=== PATIENT | female | born 1985 | race Caucasian/White ===

== ENCOUNTER 2022-07-14 16:23 | Emergency (ER) | payer MEDICAID, SELFPAY ==
[2022-07-14 16:28] VITALS: BP 123/76; PULSE 88; RESP 16; TEMP 36.8; O2SAT 100; BMI 32.1
--- NOTE | 2022-07-14 17:00 | USR_ITS ---
PROCEDURE INFORMATION: Exam: US First Trimester, Transabdominal and US , Transvaginal Exam date and time: 07/14/2022 6:01 PM Age: 36 years old Clinical indication: Condition or disease; Lmp or gestational age (weeks): 05/23/2022 lmp; High risk preganancy; Threatened miscarriage; 4th ; Additional info: Vaginal bleeding LABS AND CLINICAL REPORTS: Last menstrual period start date: 05/23/2022 Gestational age (Established): 7 w 3 d Estimated due date (Established): 02/27/2023 TECHNIQUE: Imaging protocol: Real-time transabdominal obstetrical ultrasound of the maternal pelvis and a first trimester , less than 14 weeks 0 days, with image documentation. Transvaginal imaging was used for better evaluation of the fetus, adnexa, and/or cervix. COMPARISON: No relevant prior studies available. FINDINGS: Gestation: Mixed echogenic material in the uterine cavity without a normal appearing pole or . Possible yolk sac sac which measures 4.7 mm. Embryonic/ heart rate: Not visualized. Extra-embryonic membranes/Placenta: Unremarkable. No subchorionic bleed. Amniotic fluid: Amniotic fluid and extra-amniotic fluid is normal for gestational age. BIOMETRY: Gestational age (AUA): Not measured. Mean sac diameter: 1.3 cm. MATERNAL: Uterus: Uterus measures 5.2 cm x 7.9 cm x 4.7 cm. Cervix: Cervical length measures 2.7 cm. Right ovary/adnexa: Right ovary measures 1.8 x 1.7 x 2.7 cm. Left ovary/adnexa: Left ovary measures 2.2 cm x 2 cm x 3.4 cm. Intraperitoneal space: No intraperitoneal free fluid. US/US OB <=14 wk fetus w transvag IMPRESSION: Mixed echogenic material in the uterine cavity without a normal appearing pole or . Possible yolk sac sac which measures 4.7 mm. Findings may reflect an abnormal or perhaps a spontaneous miscarriage in progress with retained products of conception given history of vaginal bleeding. Close clinical correlation, serial beta HCG levels and follow-up ultrasound exam as clinically indicated advised
--- NOTE | 2022-07-14 17:30 | W.ED.GENADLT ---
HPI - General Adult General: Chief complaint: Abdominal Pain Stated complaint: Vaginal bleeding Time Seen by Provider: 07/14/22 16:55 History of Present Illness: Patient is a 36-year-old female G4, P2 presenting to emergency with 3 days of heavy vaginal bleeding. Patient tells me that she was seen on Friday at [place] for similar complaints of pelvic cramps and passage of clots and heavy vaginal bleeding. At that point time, patient was diagnosed with threatened miscarriage and was just discharged. Patient came to the emergency because of persistent heavy bleeding. Patient denies any nausea/vomiting, fever/chills, diarrhea, melena/hematochezia. Patient denies any regular contractions. Onset: 3 days ago Duration:3 days Location:home Severity:moderate Associated symptoms: Deny chest pain, dyspnea, nausea, rash, palpitations or vomiting Review of Systems Const: Denies: fever(s) or chills Eyes: Denies: change in vision ENMT: Denies: mouth pain Card: Denies: chest pain or palpitations Resp: Denies: dyspnea or non-productive cough GI: Denies: abdominal pain, nausea, vomiting or diarrhea : Reports: other (+vaginal bleeding/pelvic cramps x 3 days); Denies: dysuria Musc: Denies: extremity pain Skin/Breast: Denies: rash or new lesions Neuro: Denies: weakness in extremities Psych: Reports: other (Normal mood) Ricco/Lymph: Denies: easy bruising [facility] ED PFSH: Medical History Social History Smoking and tobacco status: current every day smoker Alcohol intake: never Substance/Drug Use: current Female Reproductive History: Date of last menstrual period: 05/14/22 Physical Exam Const: COMMON NORMALS: alert HENMT: COMMON NORMALS: atraumatic HEAD & SCALP: atraumatic MOUTH: moist mucous membranes not abnormal Eye: COMMON NORMALS: EOMs intact bilaterally and conjunctivae normal CONJUNCTIVA: Yes conjunctivae normal Neck/C-Spine: COMMON NORMALS: full ROM and supple Resp: COMMON NORMALS: normal respiratory effort and clear to auscultation bilaterally AUSCULTATION: clear to auscultation bilaterally Cardio: COMMON NORMALS: regular rate RATE: regular rate GI: COMMON NORMALS: Soft to palpation and non-tender PALPATION: Yes Soft to palpation OTHER: No focal TTP. NO guarding rebound, guarding, rigidity. No CVA tenderness to percussion. Neg Menendez/Neg McBurney's point tenderness, no suprabupic tenderness to palpation. Extremity: COMMON NORMALS: full ROM Neuro: SENSORIUM/ORIENTATION: Yes alert MOTOR EXAM: No Abnormal motor strength present and Other motor observations present (no focal motor deficits) Psych: COMMON NORMALS: speech normal SPEECH: Yes normal speech MOOD & AFFECT: Yes euthymic mood Course Vital Signs: Vital signs: Vital Signs Temperature 98.2 F 07/14/22 18:04 Pulse Rate 88 07/14/22 18:04 Respiratory Rate 16 07/14/22 18:04 Blood Pressure 118/70 07/14/22 18:04 Pulse Oximetry 100 07/14/22 18:04 Oxygen Delivery Me thod 07/14/22 18:04 MDM - General Adult Medical Decision Making Patient is a 36-year-old female G4, P2 presenting to emergency with 3 days of heavy vaginal bleeding. Patient tells me that she was seen on Friday at [place] for similar complaints of pelvic cramps and passage of clots and heavy vaginal bleeding. Patient is hemodynamically stable. Ultrasound progression of miscarriage. Patient is instructed follow-up with serial beta hCG and ultrasound. Continues to HDS in no acute distress. Disposition: Discharge. Patient counseled regarding diagnostic impression, treatment plan. Patient given ED strict return precautions to return for continuation, worsening, or development of new symptoms. Instructed to f/u w/ OB regarding symptoms today. Patient verbalized understanding. Lab Data : 07/14/22 17:54 07/14/22 17:54 Radiology Impressions Obstetrics Ultrasound 07/14/22 17:00 IMPRESSION: Mixed echogenic material in the uterine cavity without a normal appearing pole or . Possible yolk sac sac which measures 4.7 mm. Findings may reflect an abnormal or perhaps a spontaneous miscarriage in progress with retained products of conception given history of vaginal bleeding. Close clinical correlation, serial beta HCG levels and follow-up ultrasound exam as clinically indicated advised Laboratory Results WBC 11.4 10^3/uL (4.0-10.0) H 07/14/22 17:54 RBC 4.37 10^6/uL (4.1-5.3) 07/14/22 17:54 Hgb 13.2 g/dL (11.5-15.3) 07/14/22 17:54 Hct 39.9 % (37.0-47.0) 07/14/22 17:54 MCV 91.3 fl (81-99) 07/14/22 17:54 MCH 30.2 pg (28.0-34.0) 07/14/22 17:54 MCHC 33.1 g/dL (30.0-36.0) 07/14/22 17:54 RDW 11.8 % (12.1-15.1) L 07/14/22 17:54 Plt Count 263 10^3/cmm (130-400) 07/14/22 17:54 MPV 9.8 fL (7.4-10.4) 07/14/22 17:54 Neut % (Auto) 68.9 % 07/14/22 17:54 Lymph % (Auto) 22.5 % 07/14/22 17:54 Taliaferro % (Auto) 7.0 % 07/14/22 17:54 Eos % (Auto) 0.9 % 07/14/22 17:54 Baso % (Auto) 0.3 % 07/14/22 17:54 Neut # (Auto) 7.86 10^3/uL (1.8-7.7) H 07/14/22 17:54 Lymph # (Auto) 2.6 10^3/uL (0.8-4.8) 07/14/22 17:54 Taliaferro # (Auto) 0.8 10^3/uL (0.2-0.9) 07/14/22 17:54 Eos # (Auto) 0.1 10^3/uL (0.0-0.8) 07/14/22 17:54 Baso # (Auto) 0.0 10^3/uL (0.0-0.1) 07/14/22 17:54 Nucleated RBC % (auto) 0 % 07/14/22 17:54 Nucleated RBCs # 0.0 /100WBC 07/14/22 17:54 Sodium 136 mmol/L (136-145) 07/14/22 17:54 Potassium 4.1 mmol/L (3.5-5.1) 07/14/22 17:54 Chloride 101 mmol/L (98-107) 07/14/22 17:54 Carbon Dioxide 23 mmol/L (22-29) 07/14/22 17:54 Anion Gap 16.1 (5-19) 07/14/22 17:54 BUN 13 mg/dL (6-20) 07/14/22 17:54 Creatinine 0.7 mg/dL (0.5-0.9) 07/14/22 17:54 GFR Calculation 95.8 mL/min (90-130) 07/14/22 17:54 Glucose 80 mg/dL (65-115) 07/14/22 17:54 Calculated Osmolality 281 mOsm/kg (285-295) L 07/14/22 17:54 Calcium 8.9 mg/dL (8.5-10.5) 07/14/22 17:54 Total Bilirubin 0.3 mg/dL (0.15-1.2) 07/14/22 17:54 AST 21 U/L (0-32) 07/14/22 17:54 ALT 38 U/L (0-33) H 07/14/22 17:54 Alkaline Phosphatase 108 U/L (35-105) H 07/14/22 17:54 Total Protein 7.9 g/dL (6.6-8.7) 07/14/22 17:54 Albumin 4.3 g/dL (3.5-5.2) 07/14/22 17:54 Globulin 3.6 g/dL (1.3-4.6) 07/14/22 17:54 Lipase 16 U/L (13-60) 07/14/22 17:54 Ser , Semi-Qnt 4079.00 mIU/mL 07/14/22 17:54 Urine Color Straw (Yellow) 07/14/22 16:55 Urine Appearance Clear (CLEAR) 07/14/22 16:55 Urine pH 6 (5-7) 07/14/22 16:55 Ur Specific [place] 1.010 (1.005-1.030) 07/14/22 16:55 Urine Protein Neg (Negative) 07/14/22 16:55 Urine Glucose (UA) Norm (Normal) 07/14/22 16:55 Urine Ketones Negative (Negative) 07/14/22 16:55 Urine Blood 2+ (Negative) H 07/14/22 16:55 Urine Nitrate Negative (Negative) 07/14/22 16:55 Urine Bilirubin Neg (Negative) 07/14/22 16:55 Urine Urobilinogen Norm mg/dL (Negative) 07/14/22 16:55 Ur Leukocyte Esterase Negative (Negative) 07/14/22 16:55 Urine RBC 5-10 /hpf (0-2) H 07/14/22 16:55 Urine WBC Rare /hpf (0-5) 07/14/22 16:55 Ur Squamous Epith Cells 0-4 /hpf (0-5) H 07/14/22 16:55 Amorphous Sediment Not Reportable 07/14/22 16:55 Urine Bacteria Trace /hpf (NONE) 07/14/22 16:55 Blood Type A Positive 07/14/22 17:54 Rho(D) Type Positive 07/14/22 17:54 Imaging Data Other Imaging: Radiologist's impression: [place] [id number] Ultrasound Report Signed Patient: Matilda Solano Unit #: [id number] : 1985 Age/Sex: 36 / F ADM Date: 07/14/22 Loc: ER Room/Bed: Attending Dr: Ordering Provider/Ordering MD: Carol Bunn MD Date of Service: 07/14/22 Procedure(s): US OB <=14 wk fetus w transvag Accession Number(s): [id number] Report Number: [id number] PROCEDURE INFORMATION: Exam: US First Trimester, Transabdominal and US , Transvaginal Exam date and time: 07/14/2022 6:01 PM Age: 36 years old Clinical indication: Condition or disease; Lmp or gestational age (weeks): 05/23/2022 lmp; High risk preganancy; Threatened miscarriage; 4th ; Additional info: Vaginal bleeding LABS AND CLINICAL REPORTS: Last menstrual period start date: 05/23/2022 Gestational age (Established): 7 w 3 d Estimated due date (Established): 02/27/2023 TECHNIQUE: Imaging protocol: Real-time transabdominal obstetrical ultrasound of the maternal pelvis and a first trimester , less than 14 weeks 0 days, with image documentation. Transvaginal imaging was used for better evaluation of the fetus, adnexa, and/or cervix. COMPARISON: No relevant prior studies available. FINDINGS: Gestation:? Mixed echogenic material in the uterine cavity without a normal appearing pole or .? Possible yolk sac sac which measures 4.7 mm. Embryonic/ heart rate: Not visualized. Extra-embryonic membranes/Placenta: Unremarkable. No subchorionic bleed. Amniotic fluid: Amniotic fluid and extra-amniotic fluid is normal for gestational age. BIOMETRY: Gestational age (AUA):? Not measured. Mean sac diameter: 1.3 cm. MATERNAL: Uterus: Uterus measures 5.2 cm x 7.9 cm x 4.7 cm. Cervix: Cervical length measures 2.7 cm. Right ovary/adnexa:? Right ovary measures 1.8 x 1.7 x 2.7 cm. Left ovary/adnexa: Left ovary measures 2.2 cm x 2 cm x 3.4 cm. Intraperitoneal space: No intraperitoneal free fluid. US/US OB <=14 wk fetus w transvag IMPRESSION: Mixed echogenic material in the uterine cavity without a normal appearing pole or .? Possible yolk sac sac which measures 4.7 mm.? Findings may reflect an abnormal or perhaps a spontaneous miscarriage in progress with retained products of conception given history of vaginal bleeding. Close clinical correlation, serial beta HCG levels and follow-up ultrasound exam as clinically indicated advised ? Dictated By: Fredo Mendiola MD Signed By: Fredo Mendiola MD Signed Date/Time: 07/14/221912 DD/ 00 Discharge Plan Discharge Patient Disposition: Home Clinical Impression: Abnormal vaginal bleeding Condition: Stable Prescriptions: New acetaminophen 500 mg tablet 500 mg PO Q6H PRN (Reason: pain) 5 Days Qty: 20 0RF No Action multivitamin Tablet 1 tab PO DAILY Macrobid 100 mg Capsule 100 mg PO BID Rx Instructions: must administer with a meal/food Discharge Orders: Discharge ED (Routine); Ordered 07/14/22 Ordered By: Carol Bunn Discharge Diet: Advance as tolerated Discharge Activity: Increase activity as tolerated Patient Instructions: Threatened Miscarriage (ED) Activity Restrictions/Additional Instructions: Our child support case officer will have you follow-up with our obstretics provider in the next few days. You would be expected to have a phone call with our child support case officer who will put you on the schedule. You can expect a call from us in the next 2-3 days. If you don't hear from us, call us back in the emergency room at [phone]. Your hemoglobin is 13.2. Your bHCG is 4079 today. Here's a copy of your US report: [employer] [place] [address] Ultrasound Report Signed Patient: Matilda Solano Unit #: [id number] : 1985 Age/Sex: 36 / F ADM Date: 07/14/22 Loc: ER Room/Bed: Attending Dr: Ordering Provider/Ordering MD: Carol Bunn MD Date of Service: 07/14/22 Procedure(s): US OB <=14 wk fetus w transvag Accession Number(s): [id number] Report Number: [id number] PROCEDURE INFORMATION: Exam: US First Trimester, Transabdominal and US , Transvaginal Exam date and time: 07/14/2022 6:01 PM Age: 36 years old Clinical indication: Condition or disease; Lmp or gestational age (weeks): 05/23/2022 lmp; High risk preganancy; Threatened miscarriage; 4th ; Additional info: Vaginal bleeding LABS AND CLINICAL REPORTS: Last menstrual period start date: 05/23/2022 Gestational age (Established): 7 w 3 d Estimated due date (Established): 02/27/2023 TECHNIQUE: Imaging protocol: Real-time transabdominal obstetrical ultrasound of the maternal pelvis and a first trimester , less than 14 weeks 0 days, with image documentation. Transvaginal imaging was used for better evaluation of the fetus, adnexa, and/or cervix. COMPARISON: No relevant prior studies available. FINDINGS: Gestation:? Mixed echogenic material in the uterine cavity without a normal appearing pole or .? Possible yolk sac sac which measures 4.7 mm. Embryonic/ heart rate: Not visualized. Extra-embryonic membranes/Placenta: Unremarkable. No subchorionic bleed. Amniotic fluid: Amniotic fluid and extra-amniotic fluid is normal for gestational age. BIOMETRY: Gestational age (AUA):? Not measured. Mean sac diameter: 1.3 cm. MATERNAL: Uterus: Uterus measures 5.2 cm x 7.9 cm x 4.7 cm. Cervix: Cervical length measures 2.7 cm. Right ovary/adnexa:? Right ovary measures 1.8 x 1.7 x 2.7 cm. Left ovary/adnexa: Left ovary measures 2.2 cm x 2 cm x 3.4 cm. Intraperitoneal space: No intraperitoneal free fluid. US/US OB <=14 wk fetus w transvag IMPRESSION: Mixed echogenic material in the uterine cavity without a normal appearing pole or .? Possible yolk sac sac which measures 4.7 mm.? Findings may reflect an abnormal or perhaps a spontaneous miscarriage in progress with retained products of conception given history of vaginal bleeding. Close clinical correlation, serial beta HCG levels and follow-up ultrasound exam as clinically indicated advised ? Dictated By: Fredo Mendiola MD Signed By: Fredo Mendiola MD Signed Date/Time: 07/14/22 1913 DD/ 180 Coding Level of Care Code ED Ships Or Barges Loader for Chg Fwd Exam Comprehensive
[2022-07-14 17:41] LABS: Add Urine Microscopic? YES; Bilirubin Urine Neg (Negative); Blood Urine 2+ (Negative); Glucose Urine UA Norm (Normal); Ketones Urine Negative (Negative); Leukocyte Esterase Urine Negative (Negative); Nitrate Urine Negative (Negative); Protein Urine Neg (Negative); Urine Appearance Clear (CLEAR); Urine Color Straw (Yellow); Urobilinogen Urine Norm (Negative); pH Urine 6 (5-7)
[2022-07-14 17:42] LABS: Add Urine Culture? No; Bacteria Urine TRACE /hpf; Squamous Epithelial Cell Urine 0-4 /hpf (0-5); WBC Urine RARE /hpf (0-5)
[2022-07-14 18:04] VITALS: BP 118/70; PULSE 88; RESP 16; TEMP 36.8; O2SAT 100
[2022-07-14 18:11] LABS: Basophils % 0.3 %; Eosinophils # 0.1 10^3/uL (0.0-0.8); Eosinophils % 0.9 %; Hematocrit 39.9 % (37.0-47.0); Hemoglobin 13.2 g/dL (11.5-15.3); Lymphocytes # 2.6 10^3/uL (0.8-4.8); Lymphocytes % 22.5 %; Mean Corpuscular HGB Conc 33.1 g/dL (30.0-36.0); Mean Corpuscular Hemoglobin 30.2 pg (28.0-34.0); Mean Corpuscular Volume 91.3 fl (81-99); Mean Platelet Volume 9.8 fL (7.4-10.4); Monocytes # 0.8 10^3/uL (0.2-0.9); Neutrophils # 7.86 10^3/uL (1.8-7.7); Neutrophils % 68.9 %; Nucleated Red Blood Cells % 0 %; Platelet Count 263 10^3/cmm (130-400); Red Blood Count 4.37 10^6/uL (4.1-5.3); Red Cell Distribution Width 11.8 % (12.1-15.1); White Blood Count 11.4 10^3/uL (4.0-10.0)
[2022-07-14] MEDS: acetaminophen 500 mg Tablet PO (18:18)
[2022-07-14 18:46] LABS: Alanine Aminotransferase 38 U/L (0-33); Albumin Level 4.3 g/dL (3.5-5.2); Alkaline Phosphatase 108 U/L (35-105); Aspartate Amino Transferase 21 U/L (0-32); Blood Urea Nitrogen 13 mg/dL (6-20); Calcium 8.9 mg/dL (8.5-10.5); Carbon Dioxide 23 mmol/L (22-29); Chloride 101 mmol/L (98-107); Globulin 3.6 g/dL (1.3-4.6); Glomerular Filtration Rate 95.8 mL/min (90-130); Glucose 80 mg/dL (65-115); Lipase 16 U/L (13-60); Osmolality Calculated 281 mOsm/kg (285-295); Sodium 136 mmol/L (136-145); Total Bilirubin 0.3 mg/dL (0.15-1.2); Total Protein 7.9 g/dL (6.6-8.7)
[2022-07-14 18:55] LABS: Anion Gap 16.1 (5-19); Potassium 4.1 mmol/L (3.5-5.1)
--- NOTE | 2022-07-14 19:50 | PC.NURSE ---
patient discharged by [facility].
--- NOTE | 2022-07-16 12:28 | DCPLANNER ---
Addendum entered by Cristal Portillo 07/18/22 14:05: transitional care manager received the following message from [facility] care clinic regarding follow up appointment: PT. F/U WITH PCP Original Note: transitional care manager had message to schedule a follow up appointment for [facility] with [facility]. transitional care manager sent patients information to the front office of [facility]. Patients information will be printed and reviewed. Clinic will call patient with appointment information.
== END 2022-07-14 19:51 | disposition home or self-care (01) ==
PROVIDERS: Emergency Provider Emergency Medicine
DX: O46.91 Antepartum hemorrhage, unspecified, first trimester (principal); Z3A.01 Less than 8 weeks gestation of pregnancy; O99.331 Smoking (tobacco) complicating pregnancy, first trimester; F17.210 Nicotine dependence, cigarettes, uncomplicated
CPT/HCPCS: 76801; 76817; 80053; 81001; 83690; 84702; 85025; 86900; 99284

== ENCOUNTER 2024-02-16 15:18 | Outpatient (CLI) | payer MEDICAID, SELFPAY ==
--- NOTE | 2024-02-16 15:22 | MR_ITS ---
WS: [id number] MRI LUMBAR SPINE NONCONTRAST HISTORY: CHRONIC PAIN SYNDROME/OSTEOARTHRITIS/LOW BACK PAIN COMPARISON: None available. TECHNIQUE: Sagittal and axial multisequence imaging is submitted. Normal lumbar alignment with no compression fractures or marrow edema. Moderate degenerative disc disease and narrowing at L4-5 and L5-S1. Fatty replacement along the endpl ates of L4 and L5. No fractures. Conus terminates normally at L1-2 disc level. L1-L2: Normal. L2-L3: Mild annular disc bulging with a shallow RIGHT paracentral disc protrusion with annular fissur e. Mild asymmetric flattening of the thecal sac greatest on the RIGHT. Mild central and RIGHT subarti cular recess encroachment. L3-L4: Mild annular disc bulging and osteophytic ridging. Central and RIGHT paracentral disc protrusi ons and small vertebral body osteophytes. Mild central, bilateral subarticular recess and foraminal s tenosis. Slightly greater contact on the traversing L4 nerve roots. L4-L5: Diffuse annular disc bulging shallow RIGHT paracentral disc protrusion with annular fissure. D isc and osteophyte encroachment upon the ventral thecal sac and subarticular recesses. Mild facet art hritis. Mild central with moderate bilateral subarticular recess encroachment. Greatest disc encroach ment upon the traversing L5 nerve roots. L5-S1: Diffuse annular disc bulging with a moderate central disc protrusion with annular fissure. Marti tral disc protrusion contacts but does not displace the RIGHT S1 nerve root. Bilateral facet joint ar thritis and ligamentum flavum hypertrophy. Moderate bilateral foraminal stenosis, LEFT greater than R IGHT due to disc, osteophyte and facet disease. IMPRESSION: 1. L2-3: Shallow RIGHT paracentral disc protrusion with annular fissure. Mild central, RIGHT subarti cular recess stenosis. 2. L3-4: Mild central, bilateral subarticular recess and foraminal stenosis. Slightly greater contac t on the traversing L4 nerve roots. 3. L4-5: Mild central with moderate bilateral subarticular recess encroachment. Disc encroachment up on the traversing L5 nerve roots. 4. L5-S1: Moderate central disc protrusion with annular fissure. Disc protrusion contacts the RIGHT S1 nerve root but does not displace it. Moderate bilateral foraminal stenosis, LEFT greater than RIGH T.
== END 2024-02-16 15:19 | disposition home or self-care (01) ==
LOC: RAD 15:19
PROVIDERS: PCP Nurse Practitioner; Visit Provider Anesthesiology
DX: G89.4 Chronic pain syndrome (principal); M19.90 Unspecified osteoarthritis, unspecified site; M62.830 Muscle spasm of back; M54.17 Radiculopathy, lumbosacral region; M48.061 Spinal stenosis, lumbar region without neurogenic claudication; M51.27 Other intervertebral disc displacement, lumbosacral region
CPT/HCPCS: 72148